=== PATIENT | male | born 1955 | race Caucasian/White ===

== ENCOUNTER → 2016-09-08 | Outpatient (CLI) | payer BC ==
[~2016-09-08] MED LIST: ASPIRIN81 M1 PO; ASPIRIN81 M2 PO; CRESTOR PO; FISH OIL 1,001000 M1 PO; HCTZ PO; MELOXICAM15 MG PO; PREVACID PO
--- NOTE | ~2016-09-08 | US37 ---
[facility] A Service of [facility] RADIOLOGY TEXT RESULTS PATIENT: AL ALARCON LOCATION: SNIV : 57 UNIT #: [id number] AGE: [address]: Maritza Jorge MD SEX: M ORDER DR: [id number] [place] [id number] O MR#: [id number] Acc #: [id number] NAME: AL ALARCON : 1955 SEX: M STUDY DATE/TIME: 09/08/2016 9:15 UNIT: SNIV ROOM: STUDY DESCRIPTION: US Carotid W/Doppler Bilateral Attending Physician: Maritza Jorge M.D. Referring Physician: Maritza Jorge M.D. Ordering Physician: Maritza Jorge M.D. Primary Care Physician: Maritza Jorge M.D. MEDICAL IMAGING REPORT This report is preliminary unless electronic signature is present. EXAM Bilateral carotid Doppler HISTORY Light-headedness, dizziness. FINDINGS The right common, internal and external carotid arteries are patent with mild plaque in the carotid bulb and internal carotid artery. Velocity of the common carotid artery is 77 cm/sec. Peak systolic velocity of the right proximal internal carotid artery is 68 cm/sec with end-diastolic velocity of 17 cm/sec for a ICA:CCA ratio of 0.88. External carotid artery had a velocity of 123 cm/sec. The vertebral artery is visualized with antegrade flow. The left common, internal and external carotid arteries are patent with mild plaque noted in the carotid bulb and internal carotid arteries. Velocity of the common carotid artery is 85 cm/sec. Peak systolic velocity left proximal internal carotid artery is 77 cm/sec with an end-diastolic velocity of 27 cm/sec for ICA:CCA ratio of 0.9. External carotid artery had a velocity of 75 cm/sec. The vertebral artery is visualized with antegrade flow. IMPRESSION 1. Less than 50% stenosis of the right and left internal carotid arteries. 2. No stenosis of the external carotid arteries. 3. Antegrade flow of the vertebral arteries. [facility] A Service of [facility] RADIOLOGY TEXT RESULTS PATIENT: AL ALARCON LOCATION: SNIV : 57 UNIT #: [id number] AGE: [address]: Maritza Jorge MD SEX: M ORDER DR: Dictated by... Marlyn Yang M.D. THIS IS AN ELECTRONICALLY VERIFIED REPORT Marlyn Yang M.D. at 09/09/2016 8:50 AM FPN/pcl TD: 09/08/2016 17:51 JOB #: [id number] MEDICAL IMAGING REPORT Page 1 of 1
== END | disposition home or self-care (01) ==
LOC: SNIV 08:32
DX: R42 Dizziness and giddiness (principal); M54.12 Radiculopathy, cervical region; I65.23 Occlusion and stenosis of bilateral carotid arteries
CPT/HCPCS: 93880